=== PATIENT | female | born 1945 | race Caucasian/White ===

== ENCOUNTER 2024-07-21 03:20 | Emergency (ER) | payer OTHER ==
[2024-07-21] MEDS ORDERED: ROCURONIUM 50 MG/5 ML VIAL IV ONE (03:21)
[2024-07-21] MEDS ORDERED: AMIODARONE HCL 150 MG/3 ML INJ IV ONE (03:21)
[2024-07-21] MEDS ORDERED: NA CHLORIDE 0.9% 1,000 ML IV ONE (03:21)
[2024-07-21] MEDS ORDERED: EPINEPHrine 1 MG/10 ML SYR IV ONE ×2 (03:21)
[2024-07-21] MEDS ORDERED: ETOMIDATE 20 MG/10 ML VIAL IV ONE (03:21)
[2024-07-21] MEDS ORDERED: DOBUTAMINE IV ONE (03:21)
[2024-07-21] MEDS ORDERED: DEXTROSE IV ONE (03:21)
[2024-07-21] MEDS ORDERED: ATROPINE SULF 1 MG/10 ML SYR IV ONE ×4 (03:21→09:32)
--- OUTSIDE RECORDS SUMMARY | 2024-07-21 03:24 | XMS REPORT | Continuity of Care Document ---
Author Name Unknown Address [address] [facility] [address] [place] [address] [facility] thconnect Address [address] [facility] [address] [place] [address] Care Team Providers Care Mechatronics Technologist Name Role Phone [email or web address] Attending Clinician Unavaila ble [email or web address]_S Admitting Clinician Unavaila ble Encounters Start Date/Time End Date/Time Encounter Type Admission Type Attending Clinicians Care Facility Care Department Encounter ID Source 2023-09-07 00:00:00 2023-09-07 00:00:00 Outpatient GC_GCBZW_Ka diyala_S PRIV PRIV [id number] [facility] 2023-09-06 00:00:00 2023-09-06 00:00:00 Outpatient GC_GCBZW_Ka diyala_S PRIV PRIV [id number] [facility]
[2024-07-21] MEDS ORDERED: DICYCLOMINE HCL 10 MG CAP ONE (03:55)
[2024-07-21] MEDS ORDERED: ONDANSETRON 4 MG/2 ML VIAL ONE (03:55)
[2024-07-21] MEDS ORDERED: KETOROLAC 30 MG/ML INJ ONE (03:55)
[2024-07-21] MEDS ORDERED: NA CHLORIDE 0.9% 1,000 ML ONE (03:56)
[2024-07-21] MEDS ORDERED: MORPHINE 4 MG/ML SYR ONE (03:56)
[2024-07-21 05:09] LABS: Protime INR 1.07
[2024-07-21 05:11] LABS: Absolute Monocytes 0.4 K/uL (0.1-1.3); Absolute Neutrophil 7.4 K/uL (1.8-8.0); Basophils % 0.4 % (0-1.3); Eosinophils % 0.1 % (0-4.4); Hematocrit 39.4 % (36.0-45.0); Hemoglobin 13.9 g/dL (12.0-15.0); Lymphocytes % 11.7 % (15.3-44.8); MCH 36.6 pg (27.0-35.0); MCHC 35.4 g/dL (32.0-36.0); MCV 103.5 fL (80-100); MPV 9.2 fL (7.6-11.3); Monocytes % 4.7 % (3.3-12.3); Neutrophils % 83.1 % (41.7-73.7); Platelets 257 thou/uL (152-406); RBC Red Blood Cell Count 3.81 M/uL (3.86-4.86); Red Cell Distribution Width 13.2 % (12.1-15.2)
[2024-07-21 05:22] LABS: Specific Gravity 1.017 (1.005-1.030); Sqamous Epithelial <5 /HPF (None Seen); Urine Bacteria None Seen /HPF (<20); Urine Bilirubin NEGATIVE (Negative); Urine Blood Negative (Negative); Urine Clarity Extremely Turbid (Clear); Urine Color Light-Yellow (Yellow); Urine Culture Reflex Order REFLEXED; Urine Glucose NEGATIVE (Negative); Urine Ketones 4+ (Negative); Urine Micro Reflex YN NO BILL MICROSCOPIC; Urine Nitrite NEGATIVE (Negative); Urine Protein TRACE (Negative); Urine RBC <5 /HPF (None Seen); Urine Urobilinogen Normal (Normal); Urine pH 8.5 (5.0-7.0)
[2024-07-21 05:53] LABS: SARS-CoV-2 Antigen CONTROL BLUE LINE VIS/BG OK; SARS-CoV-2 Antigen Rapid Res Negative (Negative)
[2024-07-21 06:25] LABS: ALT/SGPT 24 U/L (13-56); AST/SGOT 58 U/L (15-37); Albumin 3.2 g/dL (3.4-5.0); Albumin/Globulin Ratio 0.9 (1.1-1.8); Alkaline Phosphatase 81 U/L (45-117); Anion Gap 10.6 mEq/L (5.0-15.0); BUN Blood Urea Nitrogen 9 mg/dL (7-18); Bicarbonate 24 mEq/L (21-32); Bilirubin Direct 0.4 mg/dL (0-0.2); Bilirubin Indirect, Calculated 1.3 mg/dL (0.2-0.8); Bilirubin Total 1.7 mg/dL (0.2-1.0); C-Reactive Protein < 2.90 mg/L (<3.00); Globulin 3.4 g/dL (2.3-3.5); Glomerular Filtration Rate 94 ml/min (=/>90); Glucose Level 143 mg/dL (74-106); Lipase 46 U/L (13-75); Magnesium 1.9 mg/dL (1.6-2.4); NT PRO-BNP 571 pg/mL (<450); Potassium 3.6 mEq/L (3.5-5.1); Protein, Total 6.6 g/dL (6.4-8.2); Sodium Level 140 mEq/L (136-145)
[2024-07-21 06:26] LABS: Troponin High Sensitivity 5049.3 pg/mL (<58.9)
[2024-07-21] MEDS ORDERED: HEPARIN 5000 UNIT/ML 1 ML VIAL ONE (06:46)
[2024-07-21] MEDS ORDERED: ASPIRIN 81 MG CHEWABLE TABLET ONE (06:46)
[2024-07-21] MEDS ORDERED: HEPARIN/D5W 25,000 UNIT/500 ML BAG IV ONE (06:47)
--- NOTE | 2024-07-21 07:06 | ER ---
Nurse's Notes [facility] Name: Yessica Obrien Age: 78 yrs Sex: Female : 1945 Arrival Date: 07/21/2024 Time: 03:20 Bed 14 Private MD: Diagnosis: NSTEMI Acute , Presentation: 07/21 03:35 Chief complaint: Patient states: pain all over that began at 2030. Denies cough/ fever. ss Coronavirus screen: Client denies travel out of the [place] in the last 14 days. Ebola Screen: Patient denies exposure to infectious person. Patient denies travel to an Ebola-affected area in the 21 days before illness onset. Initial Sepsis Screen: Does the patient meet any 2 criteria? No. Patient's initial sepsis screen is negative. Does the patient have a suspected source of infection? No. Patient's initial sepsis screen is negative. Risk Assessment: Do you want to hurt yourself or someone else? Patient reports no desire to harm self or others. Onset of symptoms was July 20, 2024 at 20:30. 03:35 Method Of Arrival: Ambulatory ss 03:35 Acuity: LOBO 3 ss 09:31 Compressions began. ph Historical: - Allergies: 03:41 PENICILLINS; ss - Home Meds: 03:41 None [Active]; ss - PMHx: 03:41 None; ss - PSHx: 03:41 Cholecystectomy; ss - Immunization history:: Client reports having NOT received the Covid vaccine. - Infectious Disease History:: Denies. - Social history:: Smoking status: Patient denies any tobacco usage or history of. - Family history:: not pertinent. Screenin:35 [facility] ED Fall Risk Assessment (Adult) History of falling in the last 3 months, jj7 including since admission No falls in past 3 months (0 pts) Confusion or Disorientation No (0 pts) Intoxicated or Sedated No (0 pts) Impaired Gait No (0 pts) Mobility Assist Device Used No (0 pt) Altered Elimination No (0 pt) Score/Fall Risk Level 0 - 2 = Low Risk Oriented to surroundings, Maintained a safe environment, Educated pt \T\ family on fall prevention, incl call for assistance when getting out of bed, Assessed \T\ reinforced patient's understanding of fall precautions. Abuse screen: Denies threats or abuse. Nutritional screening: No deficits noted. Tuberculosis screening: No symptoms or risk factors identified. Assessment: 03:35 General: Appears in no apparent distress. comfortable, Behavior is calm, cooperative, jj7 appropriate for age. Pain: Complains of pain in ALL OVER HER BODY Pain currently is 10 out of 10 on a pain scale. Neuro: Level of Consciousness is awake, alert, obeys commands, Oriented to person, place, time, situation, Appropriate for age. 06:28 Reassessment: Dr. Ocampo notified of critical lab value. Troponin 5049.3. ss 07:15 Reassessment: Patient appears in no apparent distress at this time. Patient and/or ph family updated on plan of care and expected duration. Pain level reassessed. Patient is alert, oriented x 3, equal unlabored respirations, skin warm/dry/pink. General: Appears in no apparent distress. comfortable, Behavior is calm, cooperative, appropriate for age. Pain: Denies pain. Neuro: Level of Consciousness is awake, alert, obeys commands, Oriented to person, place, time, situation, Appropriate for age. Cardiovascular: Capillary refill < 3 seconds in bilateral fingers Patient's skin is warm and dry. Rhythm is regular. Respiratory: Airway is patent Respiratory effort is even, unlabored, Respiratory pattern is regular, symmetrical. GI: No signs and/or symptoms were reported involving the gastrointestinal system. Derm: Skin is pink, warm \T\ dry. 08:35 Reassessment: Patient is alert, oriented x 3, equal unlabored respirations, skin ph warm/dry/pink. Dr Little at bedside. 09:00 Reassessment: Pt's family in [facility] asking for a nurse, upon entering room pt found to ph be unresponsive w/ agonal breathing, HR in the 30s, called for staff assist, Dr. Glover RN, Caroline SOMERS, and ARTURO Alexandra at bedside to assist, began bagging pt, respiratory paged, see MAR for medications. 09:26 Reassessment: pt intubated. ph 09:28 Reassessment: laborer cutting tool team at bedside. ph 09:31 Reassessment: No palpable pulse, asystole on monitor, CPR initiated. ph 09:36 Reassessment:. Reassessment: Pulse check, asystole, CPR resumed. ph 09:38 Reassessment: Pulse check asystole, CPR resumed. ph 09:40 Reassessment: Pulse check asystole, CPR resumed. ph 09:42 Reassessment: Pulse check asystole, continued compression. ph 09:44 Reassessment: Pulse check asystole, continued compressions. ph 09:46 Reassessment: pulse check ventricular fibrillation, pt defibrillated w/ 200 joules, ph resumed compressions. 09:47 Reassessment: Pulse check fine v-fib, resumed compressions. ph 09:49 Reassessment: Pulse check PEA, resumed compressions. ph 09:51 Reassessment: Pulse check PEA, resumed compressions. ph 09:53 Reassessment: Pulse check w/ weak but palpable pulse, rate 30 bpm. ph 09:55 Reassessment: HR 38 bpm, junctional rhythm, pt transported to orthodontic lab technician. ph Vital Signs: 03:35 BP 178 / 70; Pulse 65; Resp 16; Temp 97.6(TE); Pulse Ox 100% on R/A; Weight 54.43 kg; ss Height 5 ft. 2 in. ; Pain 10/10; 04:34 BP 168 / 80; Pulse 64; Resp 16; Pulse Ox 99% ; jj7 05:30 BP 166 / 72; Pulse 64; Resp 17; Pulse Ox 95% ; Pain 4/10; jj7 06:30 BP 135 / 85; Pulse 73; Resp 17; Pulse Ox 96% ; jj7 07:30 BP 137 / 90; Pulse 76; Resp 18; Pulse Ox 98% on R/A; Pain 0/10; ph 08:30 BP 150 / 102; Pulse 69; Resp 18; Pulse Ox 97% on R/A; ph 09:00 BP 97 / 85; Pulse 39; Resp 6; ph 09:15 BP 76 / 47; Pulse 42; Resp 15 A; Pulse Ox 99% on 100 lpm BVM; ph 09:30 BP 88 / 65; Pulse 62; Resp 18 A; Pulse Ox 100% on ETT ambu; ph 09:55 BP 98 / 53; Pulse 43; Resp 18 A; Pulse Ox 98% on ETT ambu; ph 03:35 Body Mass Index 21.95 (54.43 kg, 157.48 cm) ss 03:35 Pain Scale: Adult ss 05:30 Pain Scale: Adult jj7 07:30 Pain Scale: Adult ph Esko Coma Score: 05:06 Eye Response: spontaneous(4). Motor Response: obeys commands(6). Verbal Response: sp4 oriented(5). Total: 15. ED Course: 03:26 Patient arrived in ED. gm2 03:34 Sanjay Chaves MD is Attending Physician. sp4 03:35 Patient has correct armband on for positive identification. Bed in low position. Call jj7 light in reach. Side rails up X 1. Adult w/ patient. Provided Education on: USE OF CALL CID. Client placed on continuous cardiac and pulse oximetry monitoring. NIBP monitoring applied. front desk monitor on. 03:41 Triage completed. ss 03:41 Arm band placed on right wrist. ss 03:52 Virginia Ballard, RN is Primary Nurse. jj7 04:08 Inserted saline lock: 22 gauge in right antecubital area, using aseptic technique. jj7 Blood collected. Flushed with 10 mL NS. 04:32 Basic Metabolic Panel Sent. jj7 04:32 LFT's Sent. jj7 04:32 Magnesium Sent. jj7 04:32 NT PRO-BNP Sent. jj7 04:32 PT-INR Sent. jj7 04:32 Troponin HS Sent. jj7 04:33 Influenza Screen (a \T\ B) Sent. jj7 04:33 SARS RAPID Sent. jj7 04:33 Urinalysis W/Microscopic Sent. jj7 04:33 CRP Sent. jj7 04:33 Lipase Sent. jj7 04:33 TSH Sent. jj7 04:33 T4 Free Sent. jj7 06:51 Chest Single View XRAY In Process Unspecified. EDMS 07:06 Suresh Blair MD is Hospitalizing Provider. sp4 07:08 Report given to BRITNI SOMERS. jj7 09:14 Missed attempt(s): 22 gauge in left hand. Bleeding controlled, band aid applied, ph catheter tip intact. Missed attempt(s): 22 gauge in left forearm. Bleeding controlled, band aid applied, catheter tip intact. Missed attempt(s): 22 gauge in right hand. Bleeding controlled, band aid applied, catheter tip intact. Missed attempt(s): 20 gauge in right forearm. Bleeding controlled, band aid applied, catheter tip intact. 09:15 Inserted saline lock: 22 gauge in right forearm, using aseptic technique. ph 09:16 Inserted saline lock: 20 gauge in left EJ, using aseptic technique. ph 09:26 Assisted provider with intubation using 7.5 mm ETT via oral route. ET tube secured at ph 23cm at the lips. Set up intubation tray. Intubated by Bird Cabrera MD. 09:27 NGT: inserted 16 Fr. via right nare. verified placement of air over stomach, verified ph return of gastric contents, to intermittent suction. Returned gastric contents. 09:46 Assist provider with cardioversion with defibrillator, for treatment of V fib with 200 ph joules Set up for procedure. Performed by Bird Cabrera MD Monitored with phototypesetting equipment monitor, pulse ox, Post procedure rhythm is fine v fib. 09:55 Patient admitted, IV remains in place. ph Administered Medications: 04:32 Drug: Ondansetron IVP 4 mg IVP once; over 2 minutes Route: IVP; Site: right antecubital;j7 05:00 Follow up: Response: Marked relief of symptoms; Pain is decreased jj7 04:32 Drug: Ketorolac IVP 15 mg IVP once Route: IVP; Site: right antecubital; jj7 05:00 Follow up: Response: Marked relief of symptoms; Pain is decreased jj7 04:33 Drug: morphine IVP or IV 4 mg IVP once over 4 mins Route: IVP; Infused Over: 4 mins; jj7 Site: right antecubital; 05:00 Follow up: Response: Marked relief of symptoms; Pain is decreased jj7 04:33 Drug: Dicyclomine PO 20 mg PO once Route: PO; jj7 05:50 Follow up: Response: Marked relief of symptoms jj7 04:33 Drug: NS 0.9% IV 500 ml IV at bolus once Route: IV; Rate: bolus; Site: right [facility] antecubital; 05:00 Follow up: IV Status: Completed infusion jj7 05:00 Drug: NS 0.9% IV 1000 ml IV at 125 ml/hr continuous Route: IV; Rate: 125 ml/hr; Site: [facility] right antecubital; 15:54 Follow up: Response: No adverse reaction; IV Status: Infusion continued upon admission ph 06:54 Drug: Heparin (NM-Bolus with thrombolytic) - HEParin IVP 60 units/kg IVP once; Max 4000 jj7 units {Co-Signature: jacinta (Jenise Fernández RN).} Route: IVP; Site: right antecubital; 07:00 Follow up: Response: No adverse reaction ph 06:55 Drug: Heparin (NM Drip) 12 units/kg/[place] - ([place] [address] units, D5W IV 500 ml) IV at jj7 calculated rate Per protocol; Max initial rate 1000 units/hr {Co-Signature: jacinta (Jenise Fernández RN).} Route: IV; Rate: 653 units/hr; Site: right antecubital; 07:30 Follow up: Response: No adverse reaction; IV Status: Infusion continued upon admission ph 06:57 Drug: Aspirin PO Chewable Tablet 324 mg PO once; 81 mg tablets x 4 Route: PO; jj7 07:30 Follow up: Response: No adverse reaction ph 09:07 Drug: Atropine 1 mg IVP once Route: IVP; Site: right antecubital; ph 09:10 Follow up: Response: No adverse reaction; Cardiac rhythm changed ph 09:16 Drug: Atropine 1 mg IVP once Route: IVP; Site: right antecubital; ph 09:20 Follow up: Response: No adverse reaction; Cardiac rhythm changed ph 09:17 Drug: NS 0.9% 1000 ml IV at 1 bolus Per protocol; 1000 mL bolus Route: IV; Rate: 1 ph bolus; Site: right antecubital; 09:40 Follow up: Response: No adverse reaction; IV Status: Completed infusion; IV Intake: ph 1000ml 09:18 Drug: Levophed (norepinephrine) 0.1 mcg/kg/min IV See Administration Instructions; ph (Standard concentration 4 mg / 250 mL D5W); Recommended max rate 3 mcg/kg/min; Titrate 0.05 mcg/kg/min as often as every 5 minutes to achieve goal (see titration policy); Goal parameter MAP greater than 65 mmHg. {Note: given at max dose of 30mcg/kg/min per Cabrera.} Route: IV; Rate: calculated rate; Site: left jugular; 09:55 Follow up: Response: No adverse reaction; IV Status: Infusion continued upon admission ph 09:22 Drug: EPINEPHrine 0.1mg/mL 1:10,000 1 mg IVP once Route: IVP; Site: left jugular; ph 09:30 Follow up: Response: No adverse reaction ph 09:23 Drug: Etomidate 20 mg IVP once Route: IVP; Site: right forearm; ph 09:30 Follow up: Response: No adverse reaction ph 09:24 Drug: Rocuronium IVP once Route: IVP; Site: right forearm; ph 09:30 Follow up: Response: No adverse reaction ph 09:28 Drug: Atropine 1 mg IVP once Route: IVP; Site: left jugular; ph 09:30 Follow up: Response: No adverse reaction ph 09:28 Drug: DOBUTamine (500 mg/250mL premix) 2.5 mcg/kg/min IV See Administration ph Instructions; Recommended max rate 20 mcg/kg/min; Titrate 2.5 mcg/kg/min as often as every 5 minutes to achieve goal (see titration policy); Goal parameter MAP greater than 65 mmHg. Route: IV; Rate: calculated rate; Site: left jugular; 09:55 Follow up: Response: No adverse reaction; IV Status: Infusion continued upon admission ph 09:31 Drug: Atropine 1 mg IVP once Route: IVP; Site: left jugular; ph 09:35 Follow up: Response: No adverse reaction ph 09:32 Drug: EPINEPHrine 0.1mg/mL 1:10,000 1 mg IVP once Route: IVP; Site: left jugular; ph 09:35 Follow up: Response: No adverse reaction ph 09:36 Drug: Sodium Bicarbonate 1 amp IVP once; (50 mL); equals 50 mEq Route: IVP; Site: left ph jugular; 09:40 Follow up: Response: No adverse reaction ph 09:36 Drug: EPINEPHrine 0.1mg/mL 1:10,000 1 mg IVP once Route: IVP; Site: left jugular; ph 09:40 Follow up: Response: No adverse reaction ph 09:38 Drug: EPINEPHrine 0.1mg/mL 1:10,000 1 mg IVP once Route: IVP; Site: left jugular; ph 09:40 Follow up: Response: No adverse reaction ph 09:39 Drug: Tenecteplase IV (Administer 10 ml NS flush BEFORE and AFTER tenecteplase) 30 mg ph once {Co-Signature: aa5 (Tang, Jennifer RN).} Route: IV; Rate: calculated rate; Site: left jugular; 09:45 Follow up: Response: No adverse reaction; IV Status: Completed infusion ph 09:40 Drug: EPINEPHrine 0.1mg/mL 1:10,000 1 mg IVP once Route: IVP; Site: left jugular; ph 09:45 Follow up: Response: No adverse reaction ph 09:41 Drug: Sodium Bicarbonate 1 amp IVP once; (50 mL); equals 50 mEq Route: IVP; Site: left ph jugular; 09:45 Follow up: Response: No adverse reaction ph 09:42 Drug: EPINEPHrine 0.1mg/mL 1:10,000 1 mg IVP once Route: IVP; Site: left jugular; ph 09:45 Follow up: Response: No adverse reaction ph 09:44 Drug: EPINEPHrine 0.1mg/mL 1:10,000 1 mg IVP once Route: IVP; Site: left jugular; ph 09:45 Follow up: Response: No adverse reaction ph 09:47 Drug: EPINEPHrine 0.1mg/mL 1:10,000 1 mg IVP once Route: IVP; Site: left jugular; ph 09:50 Follow up: Response: No adverse reaction ph 09:48 Drug: amiodarone 300 mg IVP once Route: IVP; Site: right antecubital; ph 09:55 Follow up: Response: No adverse reaction; Cardiac rhythm changed ph 09:48 Drug: Sodium Bicarbonate 1 amp IVP once; (50 mL); equals 50 mEq Route: IVP; Site: left ph jugular; 09:55 Follow up: Response: No adverse reaction ph 09:49 Drug: EPINEPHrine 0.1mg/mL 1:10,000 1 mg IVP once Route: IVP; Site: left jugular; ph 09:55 Follow up: Response: No adverse reaction ph 09:50 Drug: Christian-Synephrine (phenylephrine) 0.5 mcg/kg/min IV See Administration Instructions; ph (Standard concentration 50 mg / 250 mL D5W); Recommended max rate 5 mcg/kg/min; Titrate 0.1 mcg/kg/min as often as every 5 minutes to achieve goal (see titration policy); Goal parameter MAP greater than 65 mmHg. {Note: given at max of 200 mcg/min per Dr Cabrera.} Route: IV; Rate: calculated rate; Site: right antecubital; 09:55 Follow up: Response: No adverse reaction; IV Status: Infusion continued upon admission ph 09:51 Drug: EPINEPHrine 0.1mg/mL 1:10,000 1 mg IVP once Route: IVP; Site: left jugular; ph 09:55 Follow up: Response: No adverse reaction ph 09:52 Drug: Sodium Bicarbonate 1 amp IVP once; (50 mL); equals 50 mEq Route: IVP; Site: left ph jugular; 09:55 Follow up: Response: No adverse reaction ph 09:53 Drug: Atropine 1 mg IVP once Route: IVP; Site: left jugular; ph 09:55 Follow up: Response: No adverse reaction ph 09:54 Drug: EPINEPHrine 0.1mg/mL 1:10,000 1 mg IVP once Route: IVP; Site: left jugular; ph 09:55 Follow up: Response: No adverse reaction ph 15:57 Not Given (pt codedd): Brilinta - [id number] mg PO once; loading dose ph Medication: 03:35 VIS not applicable for this client. jj7 Intake: 09:40 IV: 1000ml; Total: 1000ml. ph Outcome: 07:06 Decision to Hospitalize by Provider. sp4 09:55 Admitted to Windows Deployment Technician accompanied by nurse, accompanied by tech, family with patient, ph via stretcher, with oxygen, on monitor, with chart, 09:55 critical 09:55 Instructed on the need for admit, 09:57 Patient left the ED. eb Signatures: Dispatcher [employer] EDMS Christina Ascencio RN RN Jovita Vazquez RN RN [place]min [place] Virginia Ballard RN RN jj7 Sanjay Chaves MD MD sp4 Claire Bellamy gm2 Jenise Fernández RN ha1 Jennifer Tang RN aa5 Corrections: (The following items were deleted from the chart) 03:42 03:41 PSHx: None; [facility] 06:29 06:28 Reassessment: Dr. Ocampo notified of critical lab value. Troponin 1049.3 [facility]
--- NOTE | 2024-07-21 07:06 | EDPHYS ---
Physician Documentation [facility] Name: Yessica Obrien Age: 78 yrs Sex: Female : 1945 Arrival Date: 07/21/2024 Time: 03:20 Bed 14 Private MD: ED Physician Sanjay Chaves HPI: 07/21 03:34 This 78 yrs old Female presents to ER via Unassigned with complaints of Pain sp4 All Over. 05:06 Very pleasant 78-year-old female presents with complaint of acute epigastric abdominal sp4 pain associated with nausea associated with generalized pain as well and feeling unwell overall. Historical: - Allergies: 03:41 PENICILLINS; ss - Home Meds: 03:41 None [Active]; ss - PMHx: 03:41 None; ss - PSHx: 03:41 Cholecystectomy; ss - Immunization history:: Client reports having NOT received the Covid vaccine. - Infectious Disease History:: Denies. - Social history:: Smoking status: Patient denies any tobacco usage or history of. - Family history:: not pertinent. ROS: 05:06 Constitutional: Negative for fever, chills, and weight loss, positive for abdominal sp4 pain and generalized pain and nausea 05:06 All other systems are negative, Exam: 05:06 Constitutional: This is a well developed, well nourished patient who is awake, alert, sp4 and in no acute distress. Head/Face: Normocephalic, atraumatic. Eyes: Pupils equal round and reactive to light, extra-ocular motions intact. Lids and lashes normal. Conjunctiva and sclera are not injected. Cornea within normal limits. Periorbital areas with no swelling, redness, or edema. ENT: Nares patent. No nasal discharge, no septal abnormalities noted. Tympanic membranes are normal and external auditory canals are clear. Oropharynx with no redness, swelling, or masses, exudates, or evidence of obstruction, uvula midline. Mucous membranes moist. Neck: Trachea midline, no thyromegaly or masses palpated, and no cervical lymphadenopathy. Supple, full range of motion without nuchal rigidity, or vertebral point tenderness. Chest/axilla: Normal chest wall appearance and motion. Nontender with no deformity. No lesions are appreciated. Cardiovascular: Regular rate and rhythm with a normal S1 and S2. No gallops, murmurs, or rubs. Normal PMI, no JVD. No pulse deficits. Respiratory: Lungs have equal breath sounds bilaterally, clear to auscultation and percussion. No rales, rhonchi or wheezes noted. No increased work of breathing, no retractions or nasal flaring. Abdomen/GI: Soft, with normal bowel sounds. No distension or tympany. No guarding or rebound. No evidence of tenderness throughout. Back: No spinal tenderness. No costovertebral tenderness. Skin: Warm, dry with normal turgor. Normal color with no rashes, no lesions, and no evidence of cellulitis. MS/ Extremity: Pulses equal, no cyanosis. Neurovascular intact. Full, normal range of motion. Neuro: Awake and alert, GCS 15, oriented to person, place, time, and situation. Cranial nerves II-XII grossly intact. Motor strength 5/5 in all extremities. Sensory grossly intact. Psych: Awake, alert, with orientation to person, place and time. Behavior, mood, and affect are within normal limits 07:00 ECG was reviewed by the Attending Physician. EKG reveals normal sinus rhythm with left sp4 bundle branch block, rate 64 bpm, negative MA based on Sgarbossa criteria Vital Signs: 03:35 BP 178 / 70; Pulse 65; Resp 16; Temp 97.6(TE); Pulse Ox 100% on R/A; Weight 54.43 kg; ss Height 5 ft. 2 in. ; Pain 10/10; 04:34 BP 168 / 80; Pulse 64; Resp 16; Pulse Ox 99% ; jj7 05:30 BP 166 / 72; Pulse 64; Resp 17; Pulse Ox 95% ; Pain 4/10; jj7 06:30 BP 135 / 85; Pulse 73; Resp 17; Pulse Ox 96% ; jj7 07:30 BP 137 / 90; Pulse 76; Resp 18; Pulse Ox 98% on R/A; Pain 0/10; ph 08:30 BP 150 / 102; Pulse 69; Resp 18; Pulse Ox 97% on R/A; ph 09:00 BP 97 / 85; Pulse 39; Resp 6; ph 09:15 BP 76 / 47; Pulse 42; Resp 15 A; Pulse Ox 99% on 100 lpm BVM; ph 09:30 BP 88 / 65; Pulse 62; Resp 18 A; Pulse Ox 100% on ETT ambu; ph 09:55 BP 98 / 53; Pulse 43; Resp 18 A; Pulse Ox 98% on ETT ambu; ph 03:35 Body Mass Index 21.95 (54.43 kg, 157.48 cm) ss 03:35 Pain Scale: Adult ss 05:30 Pain Scale: Adult jj7 07:30 Pain Scale: Adult ph Alan Coma Score: 05:06 Eye Response: spontaneous(4). Motor Response: obeys commands(6). Verbal Response: sp4 oriented(5). Total: 15. MDM: 03:34 Patient medically screened. sp4 07:03 Differential Diagnosis altered mental status, sepsis, flu, Acute MA . Data reviewed: sp4 vital signs, nurses notes. Consideration of Admission/Observation Patient was admitted/placed on observation. Escalation of care including admission/observation considered. Management of patient was discussed with the following: Hospitalist: Johnnie KENNEDY . Adz Worker: Sidney KENNEDY . ED course: EKG reveals bundle branch block negative Sgarbossa criteria. Patient has troponin of 5000. Warrants admission for left heart cath. Per Heparin infusion initiated. 07/21 03:34 Order name: SARS RAPID; Complete Time: 06: sp4 07/21 03:34 Order name: Influenza Screen (a \T\ B); Complete Time: 06: sp4 07/21 03:46 Order name: Basic Metabolic Panel; Complete Time: 06:31 sp4 07/21 03:46 Order name: CBC with Diff; Complete Time: 05:44 sp4 07/21 03:46 Order name: LFT's; Complete Time: 06: sp4 07/21 03:46 Order name: Magnesium; Complete Time: 06: sp4 07/21 03:46 Order name: NT PRO-BNP; Complete Time: 06:31 sp4 07/21 03:46 Order name: PT-INR; Complete Time: 05:44 sp4 07/21 03:46 Order name: Troponin HS; Complete Time: 06: sp4 07/21 03:47 Order name: Lipase; Complete Time: 06:31 sp4 07/21 03:47 Order name: Urinalysis W/Microscopic; Complete Time: 05:44 sp4 07/21 03:47 Order name: CRP; Complete Time: 06:31 sp4 07/21 03:47 Order name: TSH; Complete Time: 06:31 sp4 07/21 03:47 Order name: T4 Free; Complete Time: 06:31 sp4 07/21 05:36 Order name: Urine Culture EDWA 07/21 07:08 Order name: Ptt, Activated; Complete Time: 09:09 kj2 07/21 09:55 Order name: Glucose, Ancillary Testing [facility] 07/21 06:33 Order name: Chest Single View XRAY; Complete Time: 09:09 sp4 07/21 03:46 Order name: Cardiac monitoring; Complete Time: 04:09 sp4 07/21 03:46 Order name: EKG - Nurse/Tech; Complete Time: 04:32 sp4 07/21 03:46 Order name: IV Saline Lock; Complete Time: 04:09 sp4 07/21 03:46 Order name: Labs collected and sent; Complete Time: 04:09 sp4 07/21 03:46 Order name: O2 Per Protocol; Complete Time: 04:09 sp4 07/21 03:46 Order name: O2 Sat Monitoring; Complete Time: 04:09 sp4 EC:00 Rate is 64 beats/min. Rhythm is regular, Sinus Rhythm. QRS Muddy is Normal. NM interval sp4 is normal. QRS interval is prolonged. QT interval is normal. No Q waves. T waves are Normal. No ST changes noted. Clinical impression: No evidence of ischemia. Interpreted by me. Reviewed by me. Administered Medications: 04:32 Drug: Ondansetron IVP 4 mg IVP once; over 2 minutes Route: IVP; Site: right antecubital;jj7 05:00 Follow up: Response: Marked relief of symptoms; Pain is decreased jj7 04:32 Drug: Ketorolac IVP 15 mg IVP once Route: IVP; Site: right antecubital; jj7 05:00 Follow up: Response: Marked relief of symptoms; Pain is decreased jj7 04:33 Drug: morphine IVP or IV 4 mg IVP once over 4 mins Route: IVP; Infused Over: 4 mins; jj7 Site: right antecubital; 05:00 Follow up: Response: Marked relief of symptoms; Pain is decreased jj7 04:33 Drug: Dicyclomine PO 20 mg PO once Route: PO; jj7 05:50 Follow up: Response: Marked relief of symptoms 04:33 Drug: NS 0.9% IV 500 ml IV at bolus once Route: IV; Rate: bolus; Site: right [facility] antecubital; 05:00 Follow up: IV Status: Completed infusion 05:00 Drug: NS 0.9% IV 1000 ml IV at 125 ml/hr continuous Route: IV; Rate: 125 ml/hr; Site: [facility] right antecubital; 15:54 Follow up: Response: No adverse reaction; IV Status: Infusion continued upon admission ph 06:54 Drug: Heparin (MA-Bolus with thrombolytic) - HEParin IVP 60 units/kg IVP once; Max 4000 j units {Co-Signature: jacinta (Jenise Fernández RN).} Route: IVP; Site: right antecubital; 07:00 Follow up: Response: No adverse reaction ph 06:55 Drug: Heparin (MA Drip) 12 units/kg/hr - ([place] [address] units, D5W IV 500 ml) IV at j calculated rate Per protocol; Max initial rate 1000 units/hr {Co-Signature: jacinta (Jenise Fernández RN).} Route: IV; Rate: 653 units/hr; Site: right antecubital; 07:30 Follow up: Response: No adverse reaction; IV Status: Infusion continued upon admission ph 06:57 Drug: Aspirin PO Chewable Tablet 324 mg PO once; 81 mg tablets x 4 Route: PO; 07:30 Follow up: Response: No adverse reaction ph 09:07 Drug: Atropine 1 mg IVP once Route: IVP; Site: right antecubital; ph 09:10 Follow up: Response: No adverse reaction; Cardiac rhythm changed ph 09:16 Drug: Atropine 1 mg IVP once Route: IVP; Site: right antecubital; ph 09:20 Follow up: Response: No adverse reaction; Cardiac rhythm changed ph 09:17 Drug: NS 0.9% 1000 ml IV at 1 bolus Per protocol; 1000 mL bolus Route: IV; Rate: 1 ph bolus; Site: right antecubital; 09:40 Follow up: Response: No adverse reaction; IV Status: Completed infusion; IV Intake: ph 1000ml 09:18 Drug: Levophed (norepinephrine) 0.1 mcg/kg/min IV See Administration Instructions; ph (Standard concentration 4 mg / 250 mL D5W); Recommended max rate 3 mcg/kg/min; Titrate 0.05 mcg/kg/min as often as every 5 minutes to achieve goal (see titration policy); Goal parameter MAP greater than 65 mmHg. {Note: given at max dose of 30mcg/kg/min per Dr Cabrera.} Route: IV; Rate: calculated rate; Site: left jugular; :55 Follow up: Response: No adverse reaction; IV Status: Infusion continued upon admission ph 09:22 Drug: EPINEPHrine 0.1mg/mL 1:10,000 1 mg IVP once Route: IVP; Site: left jugular; ph 09:30 Follow up: Response: No adverse reaction ph 09:23 Drug: Etomidate 20 mg IVP once Route: IVP; Site: right forearm; ph 09:30 Follow up: Response: No adverse reaction ph 09:24 Drug: Rocuronium IVP once Route: IVP; Site: right forearm; ph 09:30 Follow up: Response: No adverse reaction ph 09:28 Drug: Atropine 1 mg IVP once Route: IVP; Site: left jugular; ph 09:30 Follow up: Response: No adverse reaction ph 09:28 Drug: DOBUTamine (500 mg/250mL premix) 2.5 mcg/kg/min IV See Administration ph Instructions; Recommended max rate 20 mcg/kg/min; Titrate 2.5 mcg/kg/min as often as every 5 minutes to achieve goal (see titration policy); Goal parameter MAP greater than 65 mmHg. Route: IV; Rate: calculated rate; Site: left jugular; :55 Follow up: Response: No adverse reaction; IV Status: Infusion continued upon admission ph 09:31 Drug: Atropine 1 mg IVP once Route: IVP; Site: left jugular; ph 09:35 Follow up: Response: No adverse reaction ph 09:32 Drug: EPINEPHrine 0.1mg/mL 1:10,000 1 mg IVP once Route: IVP; Site: left jugular; ph 09:35 Follow up: Response: No adverse reaction ph 09:36 Drug: Sodium Bicarbonate 1 amp IVP once; (50 mL); equals 50 mEq Route: IVP; Site: left ph jugular; 09:40 Follow up: Response: No adverse reaction ph 09:36 Drug: EPINEPHrine 0.1mg/mL 1:10,000 1 mg IVP once Route: IVP; Site: left jugular; ph 09:40 Follow up: Response: No adverse reaction ph 09:38 Drug: EPINEPHrine 0.1mg/mL 1:10,000 1 mg IVP once Route: IVP; Site: left jugular; ph 09:40 Follow up: Response: No adverse reaction ph 09:39 Drug: Tenecteplase IV (Administer 10 ml NS flush BEFORE and AFTER tenecteplase) 30 mg ph once {Co-Signature: aa5 (Jennifer Tang RN).} Route: IV; Rate: calculated rate; Site: left jugular; 09:45 Follow up: Response: No adverse reaction; IV Status: Completed infusion ph 09:40 Drug: EPINEPHrine 0.1mg/mL 1:10,000 1 mg IVP once Route: IVP; Site: left jugular; ph 09:45 Follow up: Response: No adverse reaction ph 09:41 Drug: Sodium Bicarbonate 1 amp IVP once; (50 mL); equals 50 mEq Route: IVP; Site: left ph jugular; 09:45 Follow up: Response: No adverse reaction ph 09:42 Drug: EPINEPHrine 0.1mg/mL 1:10,000 1 mg IVP once Route: IVP; Site: left jugular; ph 09:45 Follow up: Response: No adverse reaction ph 09:44 Drug: EPINEPHrine 0.1mg/mL 1:10,000 1 mg IVP once Route: IVP; Site: left jugular; ph 09:45 Follow up: Response: No adverse reaction ph 09:47 Drug: EPINEPHrine 0.1mg/mL 1:10,000 1 mg IVP once Route: IVP; Site: left jugular; ph 09:50 Follow up: Response: No adverse reaction ph 09:48 Drug: amiodarone 300 mg IVP once Route: IVP; Site: right antecubital; ph 09:55 Follow up: Response: No adverse reaction; Cardiac rhythm changed ph 09:48 Drug: Sodium Bicarbonate 1 amp IVP once; (50 mL); equals 50 mEq Route: IVP; Site: left ph jugular; 09:55 Follow up: Response: No adverse reaction ph 09:49 Drug: EPINEPHrine 0.1mg/mL 1:10,000 1 mg IVP once Route: IVP; Site: left jugular; ph 09:55 Follow up: Response: No adverse reaction ph 09:50 Drug: Christian-Synephrine (phenylephrine) 0.5 mcg/kg/min IV See Administration Instructions; ph (Standard concentration 50 mg / 250 mL D5W); Recommended max rate 5 mcg/kg/min; Titrate 0.1 mcg/kg/min as often as every 5 minutes to achieve goal (see titration policy); Goal parameter MAP greater than 65 mmHg. {Note: given at max of 200 mcg/min per Dr Cabrera.} Route: IV; Rate: calculated rate; Site: right antecubital; 09:55 Follow up: Response: No adverse reaction; IV Status: Infusion continued upon admission ph 09:51 Drug: EPINEPHrine 0.1mg/mL 1:10,000 1 mg IVP once Route: IVP; Site: left jugular; ph 09:55 Follow up: Response: No adverse reaction ph 09:52 Drug: Sodium Bicarbonate 1 amp IVP once; (50 mL); equals 50 mEq Route: IVP; Site: left ph jugular; 09:55 Follow up: Response: No adverse reaction ph 09:53 Drug: Atropine 1 mg IVP once Route: IVP; Site: left jugular; ph 09:55 Follow up: Response: No adverse reaction ph 09:54 Drug: EPINEPHrine 0.1mg/mL 1:10,000 1 mg IVP once Route: IVP; Site: left jugular; ph 09:55 Follow up: Response: No adverse reaction ph 15:57 Not Given (pt codedd): Brilinta - [id number] mg PO once; loading dose ph Disposition Summary: 07/21/24 07:06 Hospitalization Ordered Notes: Hospitalization Status: Inpatient Admission sp4 Provider: Suresh Blair sp4 [facility] Condition: Stable sp4 Problem: new sp4 Symptoms: have improved sp4 Bed/Room Type: Standard sp4 Room Assignment: sp4 Diagnosis - NSTEMI Acute , sp4 Forms: - Medication Reconciliation Form sp4 - SBAR form sp4 - Leadership Thank You Letter sp4 Critical care time excluding procedures: 07:05 Critical care time: Bedside Care: 36 minutes, Consultation: 12 minutes, Family sp4 Intervention: 12 minutes. Total time: 60 minutes Signatures: Dispatcher [employer] EDMS Christina Ascencio, LIZBET RN ss Bryan, Prasad, LANCE CREWMEMBER/MLRS SERGEANT-C LANCE CREWMEMBER/MLRS SERGEANT-Cla1 Jovita Vazquez RN RN ph Elio, [place], LIZBET RN jj7 Sanjay Chaves MD MD sp4 Jenise Fernández RN ha1 Jennifer Tang RN aa5 Corrections: (The following items were deleted from the chart) 03:35 03:35 SARS-COV-2 Antigen Rapid+I.LAB.BRZ ordered. EDMS EDMS 03:35 03:35 Influenza Screen (A \T\ B)+BA.LAB.BRZ ordered. EDMS EDMS 03:42 03:41 PSHx: None; [facility] 03:47 03:47 BASIC METABOLIC PANEL+C.LAB.BRZ ordered. EDMS EDMS 03:47 03:47 CBC+H.LAB.BRZ ordered. EDMS EDMS 03:47 03:47 HEPATIC FUNCTION+C.LAB.BRZ ordered. EDMS EDMS 03:47 03:47 MAGNESIUM+C.LAB.BRZ ordered. EDMS EDMS 03:47 03:47 PROBNP+C.LAB.BRZ ordered. EDMS EDMS 03:47 03:47 PROTIME (+INR)+COAG.LAB.BRZ ordered. EDMS EDMS 03:47 03:47 Troponin High Sensitivity+C.LAB.BRZ ordered. EDMS EDMS 03:47 03:47 Chest Abdomen Pelvis W Con+CT.RAD.BRZ ordered. EDMS EDMS 03:47 03:47 LIPASE+C.LAB.BRZ ordered. EDMS EDMS 03:47 03:47 Urinalysis W/Microscopic+U.LAB.BRZ ordered. EDMS EDMS 03:47 03:47 C-REACTIVE PROTEIN+C.LAB.BRZ ordered. EDMS EDMS 03:47 03:47 THYROID STIMULAT HORMONE+C.LAB.BRZ ordered. EDMS EDMS 03:47 03:47 T4 FREE+C.LAB.BRZ ordered. EDMS EDMS 09:24 09:24 Chest Single View+RAD.RAD.BRZ ordered. EDMS EDMS
--- NOTE | 2024-07-21 07:22 | P.HP ---
Certification for Inpatient Patient admitted to: Inpatient With expected LOS: >2 Midnights Patient will require the following post-hospital care: None Practitioner: I am a practitioner with admitting privileges, knowledge of patient current condition, hospital course, and medical plan of care. Services: Services provided to patient in accordance with Admission requirements found in Title 42 Section 412.3 of the Code of Federal Regulations Patient History Date of Service: 07/21/24 Reason for admission: NSTEMI History of Present Illness: 78-year-old otherwise healthy female presents the emergency department for chief complaint of epigastric pain, back pain, pain all over, lightheadedness which started last night around 2029. She denies any previous cardiac history/evaluation. She was evaluated in the emergency department and her labs were significant for a markedly elevated high sensitive troponin at 5049.3, BNP of 571 EKG with left bundle branch block which may be new, negative Sgarbossa criteria. ED physician discussed case with cardiology recommend admission, heparin drip for NSTEMI. Patient pain has resolved after IV morphine, vital signs are stable at this time, chest x-ray was negative for acute findings. - Past Medical/Surgical History -: None -: Cholecystectomy Psychosocial/ Personal History: Lives at home with her - Family History Mother -: Heart disease Brother -: Heart disease - Social History Alcohol use: No CD- Drugs: No Caffeine use: Yes Place of Residence: Home Review of Systems 10-point ROS is otherwise unremarkable Cardiovascular: Chest Pain Musculoskeletal: Back Pain Physical Examination - Physical Exam General: Alert, In no apparent distress, Oriented x3 HEENT: Atraumatic, PERRLA, EOMI Neck: Supple, 2+ carotid pulse no bruit, No LAD Respiratory: Clear to auscultation bilaterally, Normal air movement Cardiovascular: Regular rate/rhythm, Normal S1 S2 Gastrointestinal: Normal bowel sounds Musculoskeletal: No tenderness Integumentary: No rashes Neurological: Normal gait, Normal speech, Normal affect - Studies Laboratory Data (last 24 hrs) 07/21/24 07/21/24 07/21/24 05:32 04:17 04:17 WBC 8.90 Hgb 13.9 Hct 39.4 Plt Count 257 PT 12.0 INR 1.07 Sodium 140 Potassium 3.6 BUN 9 Creatinine 0.55 Glucose 143 H Magnesium 1.9 Total Bilirubin 1.7 H AST 58 H ALT 24 Alkaline Phosphatase 81 Lipase 46 Microbiology Data (last 24 hrs): 07/21/24 04:17 Nasopharnyx Influenza Type A Antigen Screen - Final 07/21/24 04:17 Nasopharnyx Influenza Type B Antigen Screen - Final Assessment and Plan - Plan Assessment: NSTEMI Plan: NSTEMI N.p.o., heparin drip Given aspirin in ED Pain improved after morphine Cardiology consultation, likely coronary angiogram Continue to monitor on telemetry and trend troponins Will obtain lipid panel with morning lab DVT PPX: Heparin drip Code status: Full Discharge Plan: Home Plan to discharge in: 48 Hours - Advance Directives Does patient have a Living Will: No Does patient have a Durable POA for Healthcare: No - Code Status/Comfort Care Code Status Assessed: Yes (Full code) Critical Care: No Time Spent Managing Pts Care (In Minutes): 57
--- NOTE | 2024-07-21 07:48 | RAD REPORT ---
EXAM DESCRIPTION: Shaenll Single View07/21/2024 6:49 am CLINICAL HISTORY: Chest pain COMPARISON: none FINDINGS: The lungs appear clear of acute infiltrate. The heart is normal size IMPRESSION: No acute abnormalities displayed
--- NOTE | 2024-07-21 08:44 | P.CNS ---
Date of Consult: 07/21/24 Chief Complaint: NSTEMI History of Present Illness: Patient with no significant PMH presented with generalized body aches, leg pain and epigastric pain and chest pain, felt like pressure radiated to her left arm, denies any other symptoms. Allergies Penicillins Allergy (Verified 07/21/24 08:36) Hives/Rash Home medications list reviewed: Yes - Past Medical/Surgical History -: None -: Cholecystectomy Psychosocial/ Personal History: Lives at home with her - Family History Mother Medical History: Heart disease Brother Medical History: Heart disease - Social History Alcohol use: No CD- Drugs: No Caffeine use: Yes Place of Residence: Home Review of Systems 10-point ROS is otherwise unremarkable Physical Examination General: Alert, In no apparent distress HEENT: Atraumatic, PERRLA, Mucous membr. moist/pink, EOMI, Sclerae nonicteric Neck: Supple, 2+ carotid pulse no bruit, No LAD, Without JVD or thyroid abnormality Respiratory: Clear to auscultation bilaterally, Normal air movement Cardiovascular: Regular rate/rhythm, Normal S1 S2 Gastrointestinal: Normal bowel sounds, No tenderness Musculoskeletal: No tenderness Integumentary: No rashes Neurological: Normal gait, Normal speech, Normal tone, Normal affect Lymphatics: No axilla or inguinal lymphadenopathy Laboratory Data (last 24 hrs) 07/21/24 07/21/24 07/21/24 05:32 04:17 04:17 WBC Hgb Hct Plt Count PT 12.0 INR 1.07 APTT 35.2 Sodium 140 Potassium 3.6 BUN 9 Creatinine 0.55 Glucose 143 H Magnesium 1.9 Total Bilirubin 1.7 H AST 58 H ALT 24 Alkaline Phosphatase 81 Lipase 46 07/21/24 04:17 WBC 8.90 Hgb 13.9 Hct 39.4 Plt Count 257 PT INR APTT Sodium Potassium BUN Creatinine Glucose Magnesium Total Bilirubin AST ALT Alkaline Phosphatase Lipase - Problems (1) NSTEMI (non-ST elevated myocardial infarction) Current Visit: Yes Status: Acute Plan: NPO for coronary angiogram. get Echo ASA 325 mg x1 Brilinta 180 mg x1 Heparin ACS protocol.
[2024-07-21] MEDS ORDERED: TICAGRELOR 90 MG TABLET PO ONE (08:47)
[2024-07-21] MEDS ORDERED: HEPA 1000U/500MLS 2,000 UNIT/1,000 ML BAG IV ONE (09:25)
[2024-07-21] MEDS ORDERED: HEPARIN 10,000 UNIT/10 ML VIAL IV ONE (09:25)
[2024-07-21] MEDS ORDERED: CLOPIDOGREL 75 MG TABLET ONE (09:26)
[2024-07-21] MEDS ORDERED: NOREPINEPHRINE BITARTRATE/D5W 4 MG/250 ML KIT IV ONE (09:26)
[2024-07-21] MEDS ORDERED: ASPIRIN 325 MG TAB ONE (09:26)
[2024-07-21] MEDS ORDERED: LIDOCAINE 1% 20 ML MDV ONE (09:26)
[2024-07-21] MEDS ORDERED: Phenylephrine HCl 10 MG/ML 1 ML VIAL ONE ×2 (09:27→09:31)
[2024-07-21] MEDS ORDERED: D5W 250 ML IV ONE (09:31)
[2024-07-21] MEDS ORDERED: TENECTEPLASE 50 MG/10 ML VIAL IV ONE (09:33)
[2024-07-21 10:11] VITALS: TEMP 97.6
[2024-07-21 10:17] VITALS: BP 135/85; O2SAT 96
[2024-07-21] MEDS ORDERED: EPINEPHRINE 1 MG/ML VIAL ONE (10:24)
--- NOTE | 2024-07-21 10:45 | P.CNS ---
Date of Consult: 07/21/24 I was called to ED bed 14 with concern for sudden decompensation and unresponsiveness. Patient noted to have sonorous respirations. We obtained a repeat EKG which on my interpretation showed concern for STEMI. I discussed case with cardiology and agreed patient requires emergent catheterization at this time. Patient became significantly bradycardic with heart rates in the 30s while maintaining a pulse with hypotensive blood pressures. I initiated ACLS, we gave the patient atropine and assisted the patient's ventilation with BVM. Once we obtained stable blood pressures I decided to emergently intubate her, I intubated her with a video-assisted glide scope without issue with fogging the ET tube and appropriate visualization through the vocal cords. Patient deteriorated just prior to going to catheterization and became pulseless at which point we initiated compressions and continued with ACLS. Decided to give the patient TNK given known STEMI. We continued ACLS with multiple rounds of compressions including epinephrine, bicarb see nursing flowsheet. After multiple rounds and continued management, we regained a pulse with bradycardia in the low 30s and femoral pulse detected on my ultrasonography. We subsequently were able to obtain blood pressure readings in the low 90s along with the patient's bradycardia and Dr. Minor, cardiology agreed patient should be taken to catheterization lab. Family updated regarding patient's status and critical nature. Several minutes after taken to catheterization suite, JOE PENA was subsequently called again. I attended the JOE PENA, Dr. Minor was acutely managing and agreed he would continue with guiding ACLS. See nursing notes for medication administration and ACLS flowsheet. Bird Cabrera MD
--- NOTE | 2024-07-24 13:00 | EKG ---
Test Date: 2024-07-21 Test Time: 04:24:03 Terrapin Fisher: STAN MEASUREMENT RESULTS: Intervals: Rate: 64 WV: 134 QRSD: 144 QT: 482 QTc: 497 [place]: P: 74 WV: 134 QRS: 59 T: 87 INTERPRETIVE STATEMENTS: Normal sinus rhythm Left bundle branch block Abnormal ECG No previous ECG available for comparison Electronically Signed On 07-24-24 12:50:55 CDT by Jason Loera
--- NOTE | 2024-07-24 13:00 | EKG ---
Test Date: 2024-07-21 Test Time: 09:09:30 [place]: PH MEASUREMENT RESULTS: Intervals: Rate: 74 ME: QRSD: 130 QT: 442 QTc: 490 [place]: P: ME: QRS: -25 T: 72 INTERPRETIVE STATEMENTS: Age and gender specific ECG analysis Wide QRS rhythm Right bundle branch block Septal infarct, age undetermined Lateral injury pattern ACUTE DC / STEMI Abnormal ECG Compared to ECG 07/21/2024 04:24:03 Uncertain supraventricular rhythm now present Right bundle-branch block now present Myocardial infarct finding now present Sinus rhythm no longer present Left bundle-branch block no longer present Electronically Signed On 07-24-24 12:50:47 CDT by Jason Loera
--- NOTE | 2024-07-25 13:14 | OP ---
Date of Procedure: 07/21/2024 Surgeon: Alphonso Little Procedure Performed: Cardiopulmonary resuscitation. Indication For Procedure: Cardiac arrest. Complications: Patient's . Estimated Blood Loss: None. Sedation: None. Description Of Procedure: The patient was arrived to the laboratory coordinator after a code blue was called in th e emergency room after patient became unconscious. EKG shows ST-elevation [place]. The patient originall y presented with non-STEMI. Upon interview, she denies having any chest pains, and the plan was to d o a coronary angiogram. While getting the patient ready to move to the laboratory coordinator, patient went unresp onsive, bradycardic. CPR was done. Repeated EKG shows ST-elevation [place] in lateral leads. The patien t went pulseless again. So CPR was continued in the emergency room for almost 20 minutes. We were a ble to regain pulse after multiple rounds of CPR, but pulse was weak in the 30s. Atropine was admini stered. The patient was moved back to the laboratory coordinator emergently. Upon moving the patient from the str etcher to the laboratory coordinator table, we lost pulse again and PEA was noticed. So another round of CPR was d one for 25 minutes, but we were not able to gain pulse again. After discussion with family, we decid ed that we will stop doing CPR and patient was pronounced at that time. Assessment And Plan: Cardiac arrest due to high-risk non-STEMI that rapidly progressed into ST-eleva tion [place] that led to cardiac arrest and . ANGEL/PATRICIA Voice ID: [id number] Report ID: [id number]
== END 2024-07-21 10:31 | disposition expired ==
LOC: ER 03:20
DX: I21.4 Non-ST elevation (NSTEMI) myocardial infarction (principal); Z86.79 Personal history of other diseases of the circulatory system; Z88.0 Allergy status to penicillin; Z11.52 Encounter for screening for COVID-19
CPT/HCPCS: 92960; 92977; 93005 ×2; 87088; 85025; 81001; 87086; 80048; 36415; 83735; 85610; 82947; 80076; 85730; 84443; 87077; 87186; 84484; 84439; 83690; 83880; 86140; 87804 ×2; 71045; 31500; 92950 ×3; 99285; 87811; 94002; J1644; J3101; J2001; J2371 ×3; J0282; J0461 ×2; J0171 ×2; J2405; J7060 ×2; J7030 ×2; J1250